=== PATIENT | female | born 1990 | race African-American/Black ===

== ENCOUNTER 2023-01-18 13:45 | Emergency (ER) | payer SELFPAY ==
[2023-01-18] MEDS ORDERED: fentaNYL 50 mcg/mL 1 mL Vial ONE (13:51)
[2023-01-18] MEDS ORDERED: Ondansetron PF 4 MG/2 ML Vial ONE (13:55)
[2023-01-18] MEDS ORDERED: Piperacillin/Tazobactam 3.375 GM VIAL ONE (13:56)
[2023-01-18] MEDS ORDERED: Piperacillin/Tazobactam 4.5 GM VIAL ONE (13:58)
[2023-01-18 14:07] LABS: #Eosinphils 0.1 thou/uL (0.0-0.7); #Monocytes 0.7 thou/uL (0.11-0.59); #Neutrophils 5.7 thou/uL (1.40-6.50); %Basophils 0.2 % (0.0-1.0); %Eosinophils 0.9 % (0.0-10.0); %Lymphocytes 29.3 % (21.0-51.0); %Monocytes 7.2 % (0.0-10.0); %Neutrophils 62.1 % (42.0-75.0); Hematocrit 42.1 % (36.0-47.0); Hemoglobin 13.7 g/dL (12.0-16.0); Mean Corpuscular HGB CONC 32.5 g/dL (32.0-36.0); Mean Corpuscular Hemoglobin 29.1 pg (27.0-31.0); Mean Corpuscular Volume 89.4 fl (78.0-98.0); Platelet Count 382 10x3/uL (130-400); RBC Distribution Width 14.3 % (11.5-14.5); Red Blood Cell (RBC) Count 4.71 mill/uL (4.20-5.40); White Blood Cell (WBC) Count 9.2 10x3/uL (4.8-10.8)
[2023-01-18] MEDS ORDERED: Iopamidol-370 76% 500 ML MDV (1 ML CHARGE) ONE (14:08)
[2023-01-18 14:21] LABS: PTT 26.5 sec (22.9-36.1); Prothrombin Time 13.1 sec (12.0-14.7)
[2023-01-18 15:00] LABS: ALT (SGPT) 19 U/L (8-55); AST (SGOT) 11 U/L (5-34); Albumin 5.1 g/dL (3.5-5.0); Alkaline Phosphatase 59 U/L (40-110); Anion Gap 15 mmol/L (10-20); BUN (Urea Nitrogen) 8 mg/dL (7.0-18.7); Bilirubin, Total 0.5 mg/dL (0.2-1.2); Calc. Creatinine Clearance 0 mL/min (70-130); Carbon Dioxide 23 mmol/L (22-29); Chloride 105 mmol/L (98-107); Estimated GFR 99; Glucose 114 mg/dL (70-105); Lipase 24 U/L (8-78); Potassium 3.7 mmol/L (3.5-5.1); Protein, Total 8.1 g/dL (6.0-8.3); Sodium 139 mmol/L (136-145)
[2023-01-18] MEDS ORDERED: Fleet Saline Enema 133 ML BOT PR SCH (16:15)
== END 2023-01-18 18:23 | disposition home or self-care (01) ==
LOC: ERS 13:45
DX: K59.00 Constipation, unspecified (principal)
CPT/HCPCS: 36415; 71045; 71275; 74174; 76856; 80053; 83605; 83690; 85025; 85610; 85730; 87040; 93005; 96365; 96375; J2405; J2543; J3010; Q9967